=== PATIENT | female | born 1980 | race Caucasian/White ===

== ENCOUNTER → 2021-05-22 | Outpatient (CLI) | payer OTHER ==
[2021-05-22] VITALS (7 sets, daily range): BP systolic 130–166; BP diastolic 85–94
[~2021-05-22] MED LIST: SOTROVIMAB 500 MG in IV DEXTROSE 5% 50 ML IV ONE
== END | disposition home or self-care (01) ==
LOC: OPSVCOP 10:46
PROVIDERS: ATTEND Preventive Medicine Public Health & General Preventive Medicine
DX: U07.1 COVID-19 (principal)
CPT/HCPCS: J7060; M0247; Q0247